=== PATIENT | female | born 1965 | race Asian ===

== ENCOUNTER → 2017-10-02 | Outpatient (CLI) | END | disposition home or self-care (01) ==

== ENCOUNTER → 2019-02-08 | Outpatient (CLI) | payer BC ==
[~2019-02-08] MED LIST: AZIT250T PO; GEN15OI1 TOP; GUAI-47 PO; LISI10TA2 PO
== END | disposition home or self-care (01) ==
LOC: LAB 08:56 → EEVIPCON 08:56
PROVIDERS: ATTEND Internal Medicine
DX: Z00.00 Encounter for general adult medical examination without abnormal findings (principal); R01.1 Cardiac murmur, unspecified
CPT/HCPCS: 80053; 80061; 81003; 82652; 84443; 85025; 93306